=== PATIENT | female | born 1995 | race Caucasian/White ===

== ENCOUNTER 2020-08-13 21:29 | Inpatient (IN) ==
[2020-08-13 20:16] LABS: Basophils % 0.1 %; Eosinophils # 0.1 K/mcL (0.0-0.6); Eosinophils % 0.9 %; Hematocrit 31.6 % (35.3-44.9); Hemoglobin 10.9 g/dL (11.5-15.4); Immature Granulocytes % 0.3 % (0-4); Lymphocytes # 1.4 K/mcL (0.6-4.6); Lymphocytes % 18.5 %; Mean Corpuscular HGB Conc 34.5 g/dL (31.6-35.5); Mean Corpuscular Hemoglobin 30.4 pg (28.0-33.3); Mean Corpuscular Volume 88.3 fL (83.0-100.0); Monocytes # 0.5 K/mcL (0.0-1.3); Monocytes % 6.8 %; Neutrophils # 5.6 K/mcL (1.6-8.9); Platelet Count 189 K/mcL (140-400); Red Blood Count 3.58 M/mcL (3.82-4.97); Red Cell Distribution Width 12.1 % (11.5-14.5); Segmented Neutrophils % 73.4 %; White Blood Count 7.6 K/mcL (4.3-11.1)
[2020-08-13 20:27] LABS: Creatinine,Urine 35 mg/dL
[2020-08-13 20:35] LABS: Alanine Aminotransferase 22 Units/L (7-52); Aspartate Amino Transferase 27 Units/L (13-39); BUN/Creatinine Ratio 14 (6-26); Blood Urea Nitrogen 8 mg/dL (6-20); Lactate Dehydrogenase 157 Units/L (140-271); Uric Acid 4.6 mg/dL (2.3-7.6); eGFR For African Americans > 60 (> 60); eGFR For Non-African Americans > 60 (> 60)
[~2020-08-13 21:29] MED LIST: *HR* Nalbuphine 10 MG/ML AMPUL IV PRN; Azithromycin 500 MG in 0.9 % Sodium Chloride 250 ML IVPB PRN; Famotidine 20 MG/2 ML VIAL IVP PRN; Metoclopramide 10 MG/2 ML VIAL IVP PRN; Naloxone 0.4 MG/ML INJ IVP PRN; Penicillin G Potassium 5,000,000 UNIT in 0.9 % Sodium Chloride Mini Bag 100 ML IVPB ONE; Ringers Solution, Lactated 1,000 ML ONE
[2020-08-13] MEDS: Ondansetron 4 MG/2 ML VIAL IVP PRN (22:04)
[2020-08-13] MEDS ORDERED: *HR* FentaNYL (PF) 100 MCG/2 ML VIAL ONE (22:05)
[2020-08-13] MEDS ORDERED: Ropivacaine/PF 0.2% 20 ML VIAL ONE (22:06)
[2020-08-13] MEDS ORDERED: Epidural Premix (fent/bupiv) 110 ML EP ONE (22:07)
[2020-08-13] MEDS: Ringers Solution, Lactated 1,000 ML IVC SCH (22:23)
[2020-08-13] MEDS: Epidural Premix (fent/bupiv) 110 ML EP SCH (22:23)
[2020-08-13] MEDS ORDERED: EPHEDrine 50 MG/ML VIAL IVP PRN (22:36)
[2020-08-13] MEDS ORDERED: Oxytocin 20 units/ LR 1000 mL 20 UNIT/1,000 ML BAG IVC SCH (23:45)
[2020-08-14 00:09] LABS: Amphetamine Screen,Urine Negative ng/mL (Cutoff=1000); Barbiturate Screen,Urine Negative ng/mL (Cutoff=200); Benzodiazepines Screen,Urine Negative ng/mL (Cutoff=200); Cannabinoid Screen,Urine Negative ng/mL (Cutoff = 50); Cocaine Screen,Urine Negative ng/mL (Cutoff= 300); Opiate Screen,Urine Negative ng/mL (Cutoff=300); Phencyclidine Screen,Urine Negative ng/mL (Cutoff=25)
[2020-08-14] MEDS: Penicillin G Potassium 2,500,000 UNIT/105 ML MLS IVPB SCH ×2 (02:40→06:33)
[2020-08-14] MEDS: Epidural Premix (fent/bupiv) 110 ML EP SCH (05:26)
[2020-08-14] MEDS: Ondansetron 4 MG/2 ML VIAL IVP PRN (06:33)
[2020-08-14] MEDS: Ringers Solution, Lactated 1,000 ML IVC SCH (06:41)
[2020-08-14] MEDS ORDERED: Lanolin 7 G OINT...G. TP PRN (13:57)
[2020-08-14] MEDS ORDERED: *HR* HYDROcodone/Acet 5/325 mg TABLET PO PRN (13:57)
[2020-08-14] MEDS ORDERED: Sennosides 8.6 MG TABLET PO PRN (13:57)
[2020-08-14] MEDS ORDERED: Oxytocin 20 units/ LR 1000 mL 20 UNIT/1,000 ML BAG IVC SCH (13:57)
[2020-08-14] MEDS ORDERED: Benzocaine/Menthol 56 GM AEROSOL SPRAY TP PRN (13:57)
[2020-08-14] MEDS: Acetaminophen 325 MG TABLET PO PRN ×2 (16:10→16:15)
[2020-08-14] MEDS: Ibuprofen 600 MG TABLET PO PRN (16:10)
[2020-08-15] MEDS: Ibuprofen 600 MG TABLET PO PRN ×3 (00:13→19:38)
[2020-08-15 04:07] LABS: Basophils % 0.1 %; Eosinophils # 0.1 K/mcL (0.0-0.6); Eosinophils % 1.2 %; Hematocrit 28.7 % (35.3-44.9); Hemoglobin 9.7 g/dL (11.5-15.4); Immature Granulocytes % 0.3 % (0-4); Lymphocytes # 1.8 K/mcL (0.6-4.6); Lymphocytes % 17.9 %; Mean Corpuscular HGB Conc 33.8 g/dL (31.6-35.5); Mean Corpuscular Hemoglobin 30.3 pg (28.0-33.3); Mean Corpuscular Volume 89.7 fL (83.0-100.0); Mean Platelet Volume 11.1 fL (9.4-12.4); Monocytes # 0.7 K/mcL (0.0-1.3); Monocytes % 6.7 %; Neutrophils # 7.4 K/mcL (1.6-8.9); Platelet Count 154 K/mcL (140-400); Red Cell Distribution Width 12.3 % (11.5-14.5); Segmented Neutrophils % 73.8 %
[2020-08-15 08:18] VITALS: BP 130/88
[2020-08-15] MEDS ORDERED: Prenatal Vit/FA 1 EACH TABLET PO SCH (09:00)
== END 2020-08-15 20:00 | disposition home or self-care (01) | DRG 807 ==
LOC: 1NENULAB → 1NENUOBS 08-14 13:55
PROVIDERS: ADMIT Registered Nurse; ATTEND Registered Nurse